=== PATIENT | male | born 1985 | race Two or more races ===

== ENCOUNTER → 2017-05-27 | Outpatient (CLI) | payer BC ==
--- NOTE | 2017-05-27 14:44 | RADIOLOGY REPORT (SQ) ---
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 TECHNIQUE: Dynamic and static medeiros-scale images acquired of the right and left parotid glands and th yroid gland. Selected additional color/power Doppler images recorded. All images stored to PACS. LIMITATIONS: None. FINDINGS: Patient presents with asymmetric left-sided facial swelling. At ultrasound, the left paro tid gland is diffusely enlarged. No dilated intra parotid ducts are identified. No intra parotid ab scess. Adjacent to the left superficial lobe parotid gland a 8 1 cm preauricular lymph node is prese nt. Ultrasound over the left cheek demonstrates that [place]'s duct is normal caliber. No gross salivary stones are identified. Right-sided parotid ultrasound is unremarkable. Right and left lobes of the thyroid are unremarkable. IMPRESSION: Left-sided parotid inflammation without intra parotid or periparotid abscess. No left p arotid duct stone is definitely identified at ultrasound. Results discussed with Kwadwo Junior NP TECHNICAL DOCUMENTATION: JOB ID: [id number] [facility]- All Rights Reserved
== END ==
LOC: RAD 11:12
PROVIDERS: ATTEND Nurse Practitioner Community Health
DX: K11.9 Disease of salivary gland, unspecified (principal)
CPT/HCPCS: 76536